=== PATIENT | male | born 1965 | race Caucasian/White ===

== ENCOUNTER → 2018-05-05 19:23 | Outpatient (CLI) | payer BC, SELFPAY ==
--- NOTE | 2018-05-05 | CYSPIN_PTH ---
PATIENT: LINETTE BARRIENTOS LOC: [facility] U#:[id number] AGE/SX: 60/M ROOM: RE05/05/[address]: MARJ Mcdaniels : 1965 BED: DIS: SPEC #: [id number] RECD: 05/06/18 08:27 STATUS: NIKOLAS MARIBELL #: [id number] ILIANA: 05/05/18 00:[address]: Sherry Mi NP DEPT: CYTOLOGY RECD BY: Srinath Recinos Tissues: Urine Procedures: Pap Stain (control) Special Stain Group II Cytospin Fluid HEADER OPERATION: Not noted PRE-OP DIAGNOSIS: R31.9 TISSUE SUBMITTED: Urine for cytology DIAGNOSIS CYTOLOGY Urine for cytology (cytospin): Rare atypical urothelial cells present. AM:jarrod 05/07/18 COMMENT The findings are nonspecific and could represent a variety of conditions including infection, urolithiasis, instrumentation and low grade urothelial neoplasm. Clinical correlation is necessary. Case has been reviewed in consultation with Dr. iSmmons who concurs with the above diagnosis. IDC:[facility] CYTOLOGY STUDY Slides are reviewed. CYTOLOGY GROSS Received is 60 ml of clear yellow fluid labeled with the patient's name and and designated per the requisition as urine. Submitted for cytology preparation. 05/06/18 TC:? CPT: 13407
[2018-05-05 20:02] LABS: Cytology, Body Fluid / CSF SEE PATHOLOGY REPORT
== END ==
PROVIDERS: Family Provider Family Medicine; PCP Family Medicine; Visit Provider Nurse Practitioner Adult Health
DX: R31.9 Hematuria, unspecified (principal)
CPT/HCPCS: 88108; 88313